=== PATIENT | male | born 1975 | race American Indian/Alaskan Native ===

== ENCOUNTER 2017-10-10 03:34 | Emergency (ER) | payer OTHER ==
[2017-10-10 03:47] VITALS: BP 129/79
--- NOTE | 2017-10-10 04:09 | Emergency Department Report ---
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 Patient presented with right knee pain for the last few weeks. Patient admitted that he is being training for his upcoming game in the next 3 weeks. Patient is mentally with flexion of the knee. No other injuries. Patient denied any fever. MD Complaint: knee injury -: week(s) Injury: Knee: Right Type of Injury: unknown Place: street/outdoors Severity: moderate Severity scale (0 -10): 4 Worsens With: movement - Related Data Allergies Allergy/AdvReac Type Severity Reaction Status Date / Time No Known Allergies Allergy Unverified 10/10/17 03:38 ED Review of Systems ROS: Stated complaint: RT KNEE PAIN Other details as noted in HPI Comment: All other systems reviewed and negative Respiratory: denies: shortness of breath Cardiovascular: denies: chest pain Gastrointestinal: denies: abdominal pain, nausea ED Past Medical Hx - Past Medical History Previous Medical History?: No - Social History Smoking Status: Never Smoker Substance Use Type: Alcohol ED Physical Exam - General Limitations: No Limitations General appearance: alert, in no apparent distress - Expanded Lower Extremity Exam Right Knee exam: Present: normal inspection, full ROM, tenderness. Absent: swelling, abrasion, ecchymosis, deformity, crepidus, dislocation, erythema, effusion, pain w/ pronation/supination, posterior draw sign ED Course Vital Signs 10/10/17 10/10/17 03:46 03:47 Temperature 98.1 F Pulse Rate 58 L Respiratory 20 20 Rate Blood Pressure 129/79 [Left] O2 Sat by Pulse 99 99 Oximetry Critical care attestation.: If time is entered above; I have spent that time in minutes in the direct care of this critically ill patient, excluding procedure time. ED Disposition Clinical Impression: Knee pain, acute Disposition: DC-01 TO HOME OR SELFCARE Is pt being admited?: No Condition: Stable Instructions: Knee Pain (ED) Referrals: JEFFERY GUTIERREZ MD [Primary Care Provider] - 3-5 Days
--- NOTE | 2017-10-10 04:13 | XRay Report ---
FINAL REPORT EXAM: XR KNEE 1-2V RT HISTORY: knee pain TECHNIQUE: Weightbearing AP and lateral views of the right knee were obtained. FINDINGS: There is no evidence of fracture or joint effusion. All 3 compartments are well maintained. IMPRESSION: Within normal limits.
== END 2017-10-10 04:36 | disposition home or self-care (01) ==
LOC: ED 03:34
DX: M25.561 Pain in right knee (principal)
CPT/HCPCS: 99283